=== PATIENT | female | born 2000 | race Caucasian/White ===

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

== ENCOUNTER 2018-11-12 16:13 | Emergency (ER) | payer SELFPAY ==
[2018-11-12 16:35] VITALS: BP 136/79
[2018-11-12] MEDS ORDERED: Tetan/Diph/Pertus SYR(Tdap)* 0.5 ML SYR(BOOSTRIX) use SYR IM ONE (17:02)
--- NOTE | 2018-11-12 17:10 | UC ---
Laceration HPI - HPI Summary HPI Summary: 18-year-old female presents for a laceration to her left pinky finger. States yesterday at approximately 5 PM she reached down to [facility] the chute of a lawnmower while it was still running causing laceration to her finger. States she cleaned and bandaged the wound and thought that it would be okay but today when she got home from work she remove the bandage and noticed some redness and swelling to the tip of the finger. Her tetanus status is unknown. Denies fever , chills, purulent drainage, decreased range of motion, numbness, or tingling. - History Of Current Complaint Chief Complaint: UCUpperExtremity Stated Complaint: INFECTED FINGER Time Seen by Provider: 11/12/18 16:33 Hx Obtained From: Patient Hx Last Menstrual Period: 10/28/18 Pain Intensity: 0 - Allergies/Home Medications Allergies/Adverse Reactions: Allergies Allergy/AdvReac Type Severity Reaction Status Date / Time No Known Allergies Allergy Verified 11/12/18 16:34 PMH/Surg Hx/FS Hx/Imm Hx Previously Healthy: Yes Psychological History: Depression - Surgical History Surgical History: None - Family History Known Family History: Positive: Hypertension - Social History Occupation: Employed Full-time Lives: With Family Alcohol Use: Rare Substance Use Type: None Substance Use Comment - Amount & Last Used: infrequently Smoking Status (MU): Heavy Every Day Tobacco Smoker Type: Cigarettes Length of Time of Smoking/Using Tobacco: "not long" "a few months" Have You Smoked in the Last Year: Yes - Immunization History Most Recent Influenza Vaccination: "never" per father Most Recent Tetanus Shot: unknown Most Recent Pneumonia Vaccination: "never" per father Review of Systems All Other Systems Reviewed And Are Negative: Yes Constitutional: Negative: Fever, Chills Skin: Positive: Other - See HPI Respiratory: Positive: Negative Cardiovascular: Positive: Negative Gastrointestinal: Positive: Negative Genitourinary: Positive: Negative Musculoskeletal: Positive: Negative Neurological: Positive: Negative Is Patient Immunocompromised?: No Physical Exam - Summary Physical Exam Summary: GENERAL APPEARANCE: Well developed, well nourished, alert and cooperative, and appears to be in no acute distress. CARDIAC: Normal S1 and S2. No S3, S4 or murmurs. Rhythm is regular. There is no peripheral edema, cyanosis or pallor. Extremities are warm and well perfused. Capillary refill is less than 2 seconds. Peripheral pulses intact. LUNGS: Clear to auscultation without rales, rhonchi, wheezing or diminished breath sounds. ABDOMEN: Positive bowel sounds. Soft, nondistended, nontender. No guarding or rebound. No masses or hepatosplenomegally. MUSKULOSKELETAL: ROM intact to all extremities. No joint erythema or tenderness. Normal muscular development. Normal gait. EXTREMITIES: 1 cm linear laceration to the palmar aspect of the tip of the left pinky finger. There is also a 0.5 cm laceration of the nail that extends to about midway. There is some mild erythema to the distal finger without edema or drainage. Bleeding controlled. Full ROM to finger. Circulation and sensation intact. SKIN: Skin normal color, texture and turgor. Triage Information Reviewed: Yes Vital Signs: Initial Vital Signs Temp 99.3 F 11/12/18 16:29 Pulse 91 11/12/18 16:29 Resp 16 11/12/18 16:29 BP 136/79 11/12/18 16:29 Pulse Ox 100 11/12/18 16:29 Vital Signs Reviewed: Yes Diagnostics - Radiology No standard instances Radiology Interpretation Completed By: ED Physician - No fracture or FB identified, Radiologist Summary of Radiographic Findings: Patient Name: BILLY COVARRUBIAS Medical Record# : [id number]. Ordering Physician: Noel Martínez NP Acct.#: [id number]. : 2000 Age: 18 Sex: F Location: [facility]. Exam Date: 11/12/18 1700 ADM Status: REG ER. Order Information: FINGER LEFT SMALL. Accession Number: [id number]. CPT: 70115. Indication: Left fifth digit injury. 3 views of the left fifth digit demonstrates no fracture or dislocation. No other bone or joint abnormality is noted. No fracture is noted. No radiopaque foreign body is identified. IMPRESSION: No fracture of the left fifth digit is noted. Laceration Course/Dx - Course/Dx Course Of Treatment: 18-year-old female presents for a laceration to her left pinky finger. States yesterday at approximately 5 PM she reached down [place] [facility] [place] chute of a lawnmower while it was still running causing laceration to her finger. States she cleaned and bandaged the wound and thought that it would be okay but today when she got home from work she remove the bandage and noticed some redness and swelling to the tip of the finger. Her tetanus status is unknown. Denies fever , chills, purulent drainage, decreased range of motion, numbness, or tingling. Afebrile. Vital signs stable. Exam revealed 1 cm linear laceration to the palmar aspect of the tip of the left pinky finger. There is also a 0.5 cm laceration of the nail that extends to about midway. There is some mild erythema to the distal finger without edema or drainage. Bleeding controlled. Full ROM to finger. Circulation and sensation intact. An x-ray was obtained of the finger and no fracture or foreign body was noted. The wound was irrigated with a copious amount of normal saline by the RN and the finger was soaked in a saline and chlorhexidine solution. I discussed the x-ray results with the patient and explained that since the wound was greater than 24 hours old that there was a higher risk for infection and closure of the wound was not recommended at this time. I dressed the wound using Xeroform and a nonstick gauze and secured it using tube gauze. The patient was offered to have her tetanus updated however she declined receiving it at this time. I did explain the risks of not updating her tetanus and she verbalized understanding. I'm going to place the patient on cephalexin 500 mg 3 times a day for 7 days and have her return in 3-4 days for a wound check and evaluation for possible delayed primary closure. Wound care, anticipatory guidance, and warning symptoms that would require immediate evaluation in the emergency room reviewed with the patient. She verbalizes understanding and agrees with plan of care. - Differential Dx - Laceration/Wound Differental Diagnoses: Foreign Body, Fracture, Laceration - Diagnosis Provider Diagnosis: Laceration of left little finger Discharge - Sign-Out/Discharge Documenting (check all that apply): Patient Departure All imaging exams completed and their final reports reviewed: Yes - Discharge Plan Condition: Stable Disposition: HOME Prescriptions: Cephalexin CAP* [Keflex 500 CAP*] 500 mg PO TID #21 cap Patient Education Materials: Laceration (ED) Forms: *Work Release Referrals: No Primary Care Phys,NOPCP [Primary Care Provider] - Additional Instructions: The x-ray performed in the clinic today showed no evidence of a fracture. Because your laceration was older than 24 hours it is not recommended to close the wound at this time. We will start she on an antibiotic called Keflex 500 mg 1 capsule 3 times a day for the next 7 days. Leave the dressing that was applied in the clinic in place for the next 24 hours. After 24 hours cleanse the wound with a mild soap and water at least twice a day. Apply a small amount of the Xeroform gauze that was provided to you over the wound and then cover with a bandage. You should change the bandage at least twice a day or any time it becomes wet or soiled. Take acetaminophen (Tylenol) or ibuprofen (Advil, Motrin) according to directions as needed for pain. Return here in 3-4 days for recheck of the wound and evaluation for possible delayed closure. Seek immediate medical attention in the emergency room if you develop a fever greater than 100.5 F, have severe pain that is not managed with a medication, have redness that spreads, a red streak going up your arm, increased swelling of the finger, pus draining from the wound, or any worsening of symptoms. - Billing Disposition and Condition Condition: STABLE Disposition: Home
== END 2018-11-12 18:10 | disposition home or self-care (01) ==
LOC: UCEAST 16:13
DX: S61.317A Laceration without foreign body of left little finger with damage to nail, initial encounter (principal); F17.210 Nicotine dependence, cigarettes, uncomplicated; W31.89XA Contact with other specified machinery, initial encounter; Y92.9 Unspecified place or not applicable
CPT/HCPCS: 73140; 90715; 99212; G0463

== ENCOUNTER 2019-01-13 15:08 | Emergency (ER) | payer SELFPAY ==
--- OUTSIDE RECORDS SUMMARY | 2019-01-13 15:13 | XMS REPORT | Continuity of Care Document ---
:2000 Author Organization [facility] Address [address], [place] [id number] Phone Care Team Providers Name Role Phone Ginette Soto NP Unavailable Unavailable Allergies, Adverse Reactions, Alerts Substance Reaction Status No Known Allergies Active Medications Medication Instructions Dosage Effective Dates (start Status Comments - stop) Aubra 0.1 mg-20 mcg 1 tab po daily - Active tablet Problems Condition Effective Dates (start - Clinical Status Comments stop) Encounter for surveillance of contraceptive pills Encounter for surveillance of contraceptive pills Human immunodeficiency virus [HIV] - counseling Encounter for surveillance of contraceptive pills Encounter for surveillance of contraceptive pills Encounter for surveillance of contraceptive pills Encounter for surveillance of contraceptive pills Encounter for surveillance of contraceptive pills Encntr screen for infections w sexl mode of transmiss Acute vaginitis Encntr screen for dis of the bld/bld-form org/immun mechn Encounter for surveillance of contraceptive pills Encntr screen for dis of the bld/bld-form org/immun mechn Encounter for test, result negative Encounter for surveillance of injectable contraceptive Encounter for initial prescription of contraceptive pills Encounter for surveillance of injectable contraceptive Encntr screen for infections w sexl mode of transmiss Candidiasis of vulva and vagina Encounter for initial prescription of injectable contracep Encounter for removal of intrauterine contraceptive device Encounter for routine checking of intrauterine contracep dev Encounter for initial prescription of contraceptive pills Acute vaginitis Encntr screen for infections w sexl mode of transmiss Encounter for test, result negative Encounter for insertion of intrauterine contraceptive device Encounter for test, result negative Encounter for oth general cnsl and advice on contraception Encounter for prescription of emergency contraception Encounter for initial prescription of other contraceptives Encounter for initial prescription of uterin contracep dev OCP, Start Family Planning Counseling Procedures Procedure Date Aubra EQ Contraceptive pills for bc Results Test Name Date and Time Measure Units Reference Range Abnormal Flag Status Comments No information Advance Directives Directive Yes / No Effective Date File Name No information Encounters Encounter Practice Location Reason(s) Diagnoses Date Provider Providers Description For Visit Copied on Encounter [facility] Encounter for Brittany Peng. [facility] surveillance of [address]- [address], [place], [place], [address], [place], [address], [place], [place], [id number], [place] tel:[phone] [facility] Brittany Peng. Referring [facility] 0- [address] Provider: [facility] [address], [place], [place], [address], [place], [address] [place], [address] [place], [address], [place], [place], [place], [address]. [id number], [place] tel:[phone] [facility] Encounter for Brittany Peng. [facility] surveillance of [address], [place], [place], [address], [place], [address], [place], [place], [id number], [place] tel:[phone] [facility] Human Brittany Peng. Referring [facility] immunodeficiency [address] Provider: [facility] virus [HIV] [address], [place], [place], [address], [place], [address] [place], [address] [place] surveillance of St, St, [place], contraceptive [place], [place], [place], [address]. [id number], [place] tel:[phone] [facility] Encounter for Brittany Peng. [facility] surveillance of [address], [place], [place], [address], [place], [address], [place], [place], [id number], [place] tel:[phone] [facility] Encounter for Feb-0 rBittany Peng. [facility] [place] surveillance of [address], [place], [place], [address], [place], [address], [place], [place], [id number], [place] tel:[phone] [facility] Encounter for Aug- [place]um [facility] of [place]. [address] Provider: [place] [facility] [address], [place], [place], [place], [address]. [place], [address] tel:[phone], St, [place], [address] [place], [place], [address]. [id number], tel:[phone] tel:[phone] [facility] Encounter for Dec-2 Brittany Peng. [facility] of [address] Provider: [facility] [address] [address], [place], [place], [address], [place], [address] [place], [address] screen for [place]. [address] infections w St, St, [place], sexl mode [place], [place], [address]. [id number], vaginitis [place] tel:[phone] [facility] Encntr screen Oct-0 Brittany Peng. [facility] for dis of the [address] Provider: [place] bld/bld-form [address], [place], [place], [address], [place], [address] [place], [address]sm [place], [address], [place], [place], [id number], [address] [place] ulting tel:[phone] Provider: [id number] NURSE [place] [facility]. [facility] Encounter for Sep-2 Brittany Peng. [facility] surveillance of [address], [place], [place], [address], [place], [address], [place], [place], [id number], [place] tel:[phone] [facility] Encntr screen Axel-0 Jake Referring [facility] [place] for dis of the 5- Annetta. [address] Provider: [facility] bld/bld-form [address], [place] org/immun [place], Francine [place], [address] mechnsmEncounter [address]. [address] for tel:[phone] [address], , [place], test, result [address] [place], [place], [place], [address]. [id number], r for tel:[phone] [place] surveillance of [id number] tel:[phone] injectable [phone] contraceptiveEnc ounter for initial prescription of contraceptive pills [facility] Encounter for Mar-0 Brittany Peng. Referring [facility] [place] surveillance of [address] Provider: [facility] injectable 7 , [place], [place], [address], Francine [place], [address] [place]. [address], [facility], [place], [place], [address]. [id number], tel:[phone] [place] [phone] tel:[phone] sulting [phone] Provider: NURSE [place] [facility]. [facility] Encntr screen May- Goodreau-Hem Referring [facility] [place] for infections w 2-201 abi Sueane. Provider: [facility] sexl mode of 6 [address] [place] transmissCandidi [facility], Francine Prater, [address] [place], [address]. [address] and tel:[phone] [address], [facility], vaginaEncounter [address] [place], [place], [place], [address]. [id number], prescription of tel:[phone] [place] injectable [id number] tel:[phone] contracepEncount [phone] er for removal of intrauterine contraceptive device [facility] Encounter for Nov-0 [facility] [place] routine checking 8- Arleen. [place] of intrauterine 6 [address] [place] contracep , [place], [place], [address] [place], [address], [address] initial [place]. [facility], prescription of tel:[phone] [place], contraceptive [id number], pillsAcute [place] vaginitisEncntr tel:[phone] screen for [phone] infections w sexl mode of transmiss [facility] Encounter for Estefania Referring [facility] [place] test, Jail[place]. [address] Provider: [facility] result [address], [place] negativeEncounte [place], Estefania R, [facility], 620 r for insertion [address]. [address] of intrauterine tel:[phone], St, [place], contraceptive [address] [place], [place], [address]. [id number], tel:[phone] tel:[phone] [facility] Encounter for [facility] [place] test, . [address] result [address], [place] negative[place]ounte [place], [place], [facility], [address] r for oth [address]. [address] general cnsl and tel:[phone] St, [place], [place] [address] [place], contraceptionEnc [id number], ounter for [place] prescription of tel:[phone] emergency [phone] contraceptionEnc ounter for initial prescription of other contraceptives [facility] Encounter for [facility] [place] initial . [address] [place] prescription of [address], [place] uterin contracep [place], [facility], [address] [address]. [address] tel:+7 St, [place], [address] [place], [id number], [place] tel:[phone] [facility] OCP, [facility] [place] Planning Emi. [address] [place] Counseling [address], [place], [facility], [address] [id number] tel:[phone] St, [place], [address] [place], [id number], [place] tel:[phone] Family History Family Member Diagnosis Age At Onset Mother No history of Myocardial infarction Father No history of Stroke 1st degree relative No hx of coronary heart disease (female <65, male <55) No family history of Blood clots, lung Father No history of Myocardial infarction No family history of Blood clots, legs Sister No history of Myocardial infarction Sister No history of Stroke 1st degree relative No hx of venous thromboembolism Mother No history of Stroke 1st degree relative No hx of cancer of breast, colon, endometrium or ovary Brother No history of Stroke Brother No history of Myocardial infarction Immunizations Vaccine Date Status Comments No information Payers Payer name Insurance type Covered republican ID Authorization(s) No information Social History Type Description Quantity Date Captured Comments Sex Female Vital Signs Date / Height Weight BMI Pulse Blood Temperature Respiratory Body Head BMI Pulse Inhaled Time: Rate Pressure Rate Surface Circumference percentile Ox Ox Area No information Chief Complaint And Reason For Visit No information Reason For Referral Reason For Referral No information Plan Of Treatment Date Type Action Status Goal Tobacco cessation counseling completed History Of Present Illness Encounter Date Complaint History Of Present Illness No information Functional Status Date Functional Assessment No information Medications Administered Medication Instructions Dosage Effective Dates (start - stop) Status Comments No information Instructions Date Instruction Additional Information No information Assessments Type Assessment Date No information Goals Health Concern Goal Type Priority Status Date No information Medical Equipment Description Device [place] Device Identifier Effective Dates (start - stop ) Status No information Mental Status Date Cognitive Assessment No information Health Concerns Observation Date No information Concern Status Date No information
--- OUTSIDE RECORDS SUMMARY | 2019-01-13 15:14 | XMS REPORT | Continuity of Care Document ---
:2000 Author Organization [facility] Address [address], [place] [id number] Phone Care Team Providers Name Role Phone [...] Start Family Planning Counseling Procedures Procedure Date No information Results Test Name Date and Time Measure Units Reference Range Abnormal Flag Status Comments No information Advance Directives Directive Yes / No Effective Date File Name No information Encounters Encounter Practice Location Reason(s) Diagnoses Date Provider Providers Description For Visit Copied on Encounter [facility] Encounter for Brittany Peng. [facility] surveillance of 0 [address] [place] [address] contrace[address], [place], [place], [address], [place], [address] [place]. [address] [place], [place], [place], [id number], [place] tel:[phone] [facility] Encounter for Brittany Peng. [facility] surveillance of [address] [place] [place] Southern contraceptive [address], [place], [place], [address], [place], 620 [place]. [address] [place], [place], [id number], [place] tel:[phone] [facility] Human Brittany Peng. Referring [facility] immunodeficiency [address] [place] [place] Provider: Southern virus [HIV] 9 St, [place], [place], [address], [place], 620 [place], [address] ter for [place]. [address] [place] surveillance of St, St, [place], contrace[place], [place], [place], [address]. [id number], [place] tel:[phone] [facility] Encounter for Brittany Peng. [facility] surveillance of [address] [place] Southern contraceptive [address], [place], [place], [address], [place], 620 [place]. [address] [place], [place], [place], [id number], [place] tel:[phone] [facility] Encounter for Feb- Brittany Peng. [facility] surveillance of [address] [place] [address] Southern contraceptive [address], [place], [place], [address], [place], 620 [place]. [address], [place], [place], [id number], [place] tel:[phone] [facility] Encounter for Kornblum Referring [facility] surveillance of [place]. [address] Provider: Southern contraceptive [address], [place], Kornblum [facility], 620 [address]. M, [address] [place] tel:+[address], , [place], [address] [place], [address]. [id number], tel:[phone] tel: [phone] [facility] Encounter for Dec-2 Brittany Peng. Referring [facility] [place] surveillance of [address] [place] Provider: Southern contraceptive 7 St, [place], [place], [address], [place], 620 [place], 620 screen for [place]. [address] [place] infections w St, , [place], sexl mode [place], [place], [place], [address]. [id number], vaginitis [place] tel:[phone] [facility] Encntr screen Oct-0 Brittany Peng. Referring [facility] [place] for dis of the [address] [place] Provider: [facility] bld/bld-form 7 St, [place], [place], [address], [place], 620 [place], 620 mechnsm [place]. [address] [place] [address] [place], St, [place], [place], [id number], [address].Cons [place] ulting tel:[phone] Provider: [phone] NURSE [place] [facility]. [facility] Encounter for Sep-2 Brittany Peng. [facility] [place] surveillance of [address] [place] Southern contraceptive [address], [place], [place], [address], [place], 620 [place]. [address], [place], [place], [id number], [place] tel:[phone] [facility] Encntr screen Axel-0 [place] Referring [facility] [place] for dis of the Annetta. [address] Provider: Southern bld/bld-form [address], Jailyn [place] org/immun [place], [place], Estefania R, [facility], 620 mechnsmEncounter [address]. [address] [place] for tel:[phone], St, [place], test, result [address] [place], [place], [place], [address]. [id number], r for tel:[phone] [place] surveillance of [id number] tel:[phone] injectable [id number] contraceptiveEnc ounter for initial prescription of contraceptive pills [facility] Encounter for Mar-0 Brittany Peng. Referring [facility] [place] surveillance of 2-201 [address] [place] Provider: Kay[place] injectable 7 , [place], [place], [address], Francine Prater, 620 [place]. [address] [place], [facility] [place], [place], [place], [address]. [id number], tel:[phone] [place] [phone] tel:[phone] sulting [phone] Provider: NURSE [place] [facility]. [facility] Encntr screen [place] Referring [facility] [place] for infections w 2-201 abi Sueane. Provider: [facility] sexl mode of 6 [address] [place] Jailyn [place] transmissCandidi [facility], [place], Francine Prater, 620 [place], [address]. [address] [place] and tel:[phone] [address], [facility], [place], vaginaEncounter [address] [place], [place], [place], [address]. [id number], prescription of tel:[phone] [place] injectable [id number] tel:[phone] contracepEncount [phone] er for removal of intrauterine contraceptive device [facility] Encounter for Nov-0 Guggino [facility] [place] routine checking 8-201 Arleen. Southern of intrauterine 6 [address] [place] [address] [place] contracep , [place], [facility], [address] [place], [address], [address] [place] initial [place]. [facility], [place], prescription of tel:[phone] [place], contraceptive [id number], pillsAcute [place] vaginitisEncntr tel:[phone] screen for [phone] infections w sexl mode of transmiss [facility] Encounter for Aug- Estefania [facility], 6-201 Jailyn. [address] Provider: [facility] result [address], Jailyn [place] negativeEncounte [place], [place], Francine Prater, 620 r for insertion [address]. [address] [place] of intrauterine tel:[phone], St, [place], contraceptive [address] [place], [place], [place], [address]. [id number], tel:[phone] [place] [phone] tel:[phone] [facility] Encounter for [facility] [place] test, Decia. [address] [place] result [address], [place] negativeEncounte [place], [place], [place], 620 r for oth [address]. [address] [place] general cnsl and tel:[phone] St, [place], [place] [address] [place], contraceptionEnc [id number], ounter for [place] prescription of tel:[phone] emergency [phone] contraceptionEnc ounter for initial prescription of other contraceptives [facility] Encounter for May- P[facility]te [facility] [place] initial Decia. [address] [facility] prescription of [address], [place] uterin contracep [place], [place], [facility], 620 dev [address]. [address] [place] tel:[phone] St, [place], [address] [place], [id number], [place] tel:[phone] [facility] OCP, StartFamily October- [facility] [place] Planning Emi. [address] [facility] Counseling [address], [place], [place], [facility], 620 [address]. [address] [place] tel:[phone] St, [place], [address] [place], [id number], [place] tel:[phone] Family History Family Member Diagnosis Age At [...] information Payers Payer name Insurance type Covered green party ID Authorization(s) No information Social History Type Description Quantity Date Captured Comments Alcohol Use Details Unknown Caffeine Use Details Unknown Tobacco Use Status Smoking Status Heavy tobacco smoker Sex Female Vital Signs Date / Height [...] Information No information Assessments Type Assessment Date assessment Encounter for surveillance of contraceptive pills Goals Health Concern Goal Type Priority Status Date No information Medical Equipment Description Device [place] Device Identifier Effective Dates (start - stop ) Status No information Mental Status Date Cognitive Assessment No information Health Concerns Observation Date No information Concern Status Date No information
[2019-01-13] MEDS ORDERED: Acetaminophen TAB* 325 MG PO ONE (15:50)
[2019-01-13] MEDS ORDERED: Ondansetron ODT TAB* 4 MG PO ONE (15:50)
--- NOTE | 2019-01-13 16:08 | UC ---
UC General HPI - HPI Summary HPI Summary: 18-year-old female presents with onset of fever, chills, headache, general malaise, body aches, nasal congestion, sore throat, and occasional cough. States today she developed nausea and had one episode of emesis. Reports feels a little lightheaded. Max temperature 102 F. Last took ibuprofen at 13:00. Denies visual disturbances, photophobia, neck pain or stiffness, chest pain, shortness of breath, abdominal pain, diarrhea, dysuria, frequency, urgency, or hematuria. - History of Current Complaint Chief Complaint: UCRespiratory Stated Complaint: ACHES, FEVER, COUGH, AND VOMITING Time Seen by Provider: 01/13/19 16:00 Hx Obtained From: Patient Hx Last Menstrual Period: 3 wks ago Pain Intensity: 8 - Allergy/Home Medications Allergies/Adverse Reactions: Allergies Allergy/AdvReac Type Severity Reaction Status Date / Time No Known Allergies Allergy Verified 01/13/19 15:17 Home Medications: Home Medications Ibuprofen TAB* [Motrin TAB* 800 MG] 800 mg PO BID 01/13/19 [History Confirmed ] PMH/Surg Hx/FS Hx/Imm Hx Previously Healthy: Yes Psychological History: Depression - Surgical History Surgical History: None - Family History Known Family History: Positive: Hypertension - Social History Occupation: Employed Full-time Lives: With Family Alcohol Use: Occasionally Substance Use Type: Marijuana Substance Use Comment - Amount & Last Used: infrequently Smoking Status (MU): Heavy Every Day Tobacco Smoker Type: Cigarettes Length of Time of Smoking/Using Tobacco: "not long" "a few months" Have You Smoked in the Last Year: Yes - Immunization History Most Recent Influenza Vaccination: "never" per father Most Recent Tetanus Shot: unknown Most Recent Pneumonia Vaccination: "never" per father Review of Systems All Other Systems Reviewed And Are Negative: Yes Constitutional: Positive: Fever, Chills, Fatigue Skin: Negative: Rash Eyes: Negative: Drainage, Eye Redness ENT: Positive: Sore Throat, Ear Ache, Nasal Discharge, Sinus Congestion. Negative: Sinus Pain/Tenderness Respiratory: Positive: Cough. Negative: Shortness Of Breath Cardiovascular: Negative: Palpitations, Chest Pain Gastrointestinal: Positive: Vomiting, Nausea. Negative: Abdominal Pain, Diarrhea Genitourinary: Negative: Dysuria, Hematuria, Frequency, Urgency, Vaginal/Penile Discharge, Abnormal Bleeding Musculoskeletal: Positive: Myalgia Neurological: Positive: Headache. Negative: Weakness, Paresthesia, Numbness Is Patient Immunocompromised?: No Physical Exam - Summary Physical Exam Summary: GENERAL APPEARANCE: Well developed, well nourished, alert and cooperative, and appears to be in no acute distress. EYES: Conjunctiva clear. No drainage. EARS: External auditory canals and tympanic membranes clear, hearing grossly intact. NOSE: Mild-moderate nasal congestion. No nasal discharge. THROAT: Mild pharyngeal erythema. No tonsilar inflammation, swelling, exudate, or lesions. Uvula midline. NECK: Neck supple, non-tender without lymphadenopathy. CARDIAC: Normal S1 and S2. No S3, S4 or murmurs. Rhythm is regular. There is no peripheral edema, cyanosis or pallor. Extremities are warm and well perfused. Capillary refill is less than 2 seconds. Peripheral pulses intact. LUNGS: Clear to auscultation without rales, rhonchi, wheezing or diminished breath sounds. ABDOMEN: Positive bowel sounds. Soft, nondistended, nontender. No guarding or rebound. No masses or hepatosplenomegally. No CVA tenderness. MUSKULOSKELETAL: ROM intact to all extremities. No joint erythema or tenderness. Normal muscular development. Normal gait. SKIN: Skin normal color, texture and turgor with no lesions or eruptions. Triage Information Reviewed: Yes Vital Signs: Initial Vital Signs Temp 100.7 F 01/13/19 15:14 Pulse 105 01/13/19 15:14 Resp 18 01/13/19 15:14 BP 110/69 01/13/19 15:14 Pulse Ox 99 01/13/19 15:14 Vital Signs Reviewed: Yes Re-Evaluation - Re-Evaluation First Eval Re-Evaluation Time: 17:41 Change: Improved Comment: Patient states she is feeling better. Temperature is normalizing and VSS. Course/Dx - Course Course Of Treatment: 18-year-old female presents with onset of fever, chills, headache, general malaise, body aches, nasal congestion, sore throat, and occasional cough. States today she developed nausea and had one episode of emesis. Reports feels a little lightheaded. Max temperature 102 F. Last took ibuprofen at 13:00. Denies visual disturbances, photophobia, neck pain or stiffness, chest pain, shortness of breath, abdominal pain, diarrhea, dysuria, frequency, urgency, or hematuria. Patient had a temp of 101.8 F. She was mildly tachycardic otherwise vital signs are stable. She had rxdr-lo-msxkrtqf nasal congestion, mild pharyngeal erythema without tonsillar swelling or exudate, no cervical lymphadenopathy, clear bilateral breath sounds, nontender abdomen, and otherwise unremarkable exam. Rapid strep test was negative. Rapid flu test was negative. Turtd-wj-aqpq urinalysis showed 1+ leukocyte esterase and 4+ ketones. She received acetaminophen 975 mg for her fever, ondansetron 8 mg PO for the nausea, and received 1 L of normal saline IV. Over the course of her stay the patient's temperature began to normalize, her heart rate normalized, and symptoms improved. She had no episodes of vomiting during the course of her stay. With the absence of urinary symptoms that do not feel that the positive leukocyte esterase is suggestive of a UTI. A urine culture is pending and will treat as needed. I suspect that her symptoms are from a viral syndrome and are recommending continued symptomatic care. She is to follow-up with her primary care provider in 3 days if symptoms are not improving. Anticipatory guidance and warning symptoms were reviewed with the patient. Verbalizes understanding and agrees with plan of care. - Differential Dx - Multi-Symptom Differential Diagnoses: Urinary Tract Infection, Other - URI, strep throat - Diagnoses Provider Diagnosis: Viral syndrome Discharge - Sign-Out/Discharge Documenting (check all that apply): Patient Departure All imaging exams completed and their final reports reviewed: No Studies - Discharge Plan Condition: Stable Disposition: HOME Patient Education Materials: Viral Syndrome (ED) Forms: *Work Release Referrals: No Primary Care Phys,NOPCP [Primary Care Provider] - Additional Instructions: The rapid strep test and rapid flu tests performed in the clinic today were negative. Your history and exam are consistent with a viral infection. Viral infections do not respond to antibiotics and are limited to the treatment of symptoms. Viral infections typically run their course in 7-10 days. Drink plenty of fluids to avoid dehydration especially if you are running any fever. Take over the counter acetaminophen (Tylenol) or ibuprofen (Advil, Motrin) according to directions as needed for pain or fever. Use salt water gargles several times a day if you have a sore throat. You may also use Chloraseptic spray or Cepacol lonzenges according to directions which contain a numbing medication and can provide some temporary relief from your sore throat. Follow up with your primary care provider in 3-5 days if symptoms persist. Seek immediate medical attention in the emergency room if you have fever greater than 100.5 F despite taking acetaminophen or ibuprofen, have chest pain , difficulty breathing, are unable to swallow, develop severe abdominal pain, persistent vomiting, or have any worsening of symptoms. - Billing Disposition and Condition Condition: STABLE Disposition: Home
[2019-01-13] MEDS ORDERED: NS 0.9% 1000 ML** 1,000 ML IV ONE (16:35)
[2019-01-13 16:45] LABS: Influenza A Molecular NEGATIVE (Negative); Influenza B Molecular NEGATIVE (Negative)
[2019-01-13 17:52] VITALS: BP 109/60
== END 2019-01-13 18:10 | disposition home or self-care (01) ==
LOC: UCEAST 15:08
DX: B34.9 Viral infection, unspecified (principal); F32.9 Major depressive disorder, single episode, unspecified; F17.210 Nicotine dependence, cigarettes, uncomplicated
CPT/HCPCS: 81002; 87086; 87651; 96360; 99212; A9270-GY; G0463

== ENCOUNTER 2019-05-08 13:05 | Emergency (ER) | payer SELFPAY ==
--- OUTSIDE RECORDS SUMMARY | 2019-05-08 13:19 | XMS REPORT | Continuity of Care Document ---
:2000 Author Organization [facility] Address [address] [place] [address] Phone Care Team Providers Name Role Phone [...] screen for dis of the bld/bld-form org/immun mechnsm Encounter for surveillance of contraceptive pills Encntr screen for dis of the bld/bld-form org/immun mechnsm Encounter for test, result negative Encounter for [...] Encounter [facility] Encounter for Brittany Peng. [facility] surveillance of 0- [address] [place] [address], [place], [place], [address], [place], [address], [place], [place], [id number], [place] tel:[phone] [facility] Encounter for Brittany Peng. [facility] surveillance of 0- [address] [place] [address], [place], [place], [address], [place], [address] [place]. [address] [place] , [place], [place], [id number], [place] tel:[phone] [facility] Encounter for Brittany Peng. [facility] surveillance of [address] [address], [place], [place], [address], [facility], [address], [place], [place], [id number], [place] tel:[phone] [facility] Human Brittany Peng. Referring [facility] immunodeficiency [address] [place] Provider: Southern virus [HIV] 9 St, [place], [place], [address], [place], 620 [place], [address] ter for [place]. [address] [place] surveillance of St, St, [place], contraceptive [place], [place], [place], [address]. [id number], [place] tel:[phone] [facility] Encounter for Brittany Peng. [facility] surveillance of [address] [place] [address] contrace[address], [place], [place], [address], [place], [address], [place], [place], [id number], [place] tel:[phone] [facility] Encounter for Feb-0 Brittany Peng. [facility] [place] surveillance of [address] [place] [address] contrace[address], [place], [place], [address], [place], [address], [place], [place], [id number], [place] tel:[phone] [facility] Encounter for Jan- Kornblum Referring [facility] [place] surveillance of [place]. [address] W Provider: [place] contraceptive [address], [place], [place], [place], [address]. M, [address] [place] tel:[phone], St, [place], [address] [place], [place], [address]. [id number], tel:[phone] [place] [phone] tel:[phone] [facility] Encounter for Dec-2 Brittany Peng. Referring [facility] [place] surveillance of [address] [place] Provider: Southern contraceptive 7 St, [place], [place], [address], [place], 620 [place], 620 screen for [place]. [place] infections w St, St, [place], sexl mode [place], [place], [place], [address]. [id number], vaginitis [place] tel:[phone] [facility] Encntr screen Mar-0 Brittany Peng. Referring [facility] [place] for dis of the [address] [place] Provider: [facility] bld/bld-form 7 St, [place], G[place], [address], [place], 620 [place], 620 mechnsm [place]. [address] [place] [address], St, [place], [place], [id number], [address].Cons [place] ulting tel:[phone] Provider: [id number] NURSE [place] [facility]. [facility] Encounter for Sep-2 Brittany Peng. [facility] [place] surveillance of [address] [place] [address], [place], [place], [address], [place], [address], [place], [place], [id number], [place] tel:[phone] [facility] Encntr screen Axel-0 [place] Referring [facility] [place] for dis of the Annetta. [address] Provider: [place] bld/bld-form [address], Jailyn Finger org/immun [place], [place], Francine Prater, 620 mechnsmEncounter [address]. [address] [place] for tel:[phone] [address], , [place], test, result [address] [place], [place], [place], [address]. [id number], r for tel:[phone] [place] surveillance of [id number] tel:[phone] injectable [id number] contraceptiveEnc ounter for initial prescription of contraceptive pills [facility] Encounter for Mar-0 Brittany Peng. Referring [facility] [place] surveillance of 2 [address] [place] Provider: [facility] injectable 7 , [place], [place], [address], Francine Prater, 620 [place]. [address], , [place], [place], [place], [address]. [id number], tel:[phone] [place] [phone] tel:[phone] sulting [phone] Provider: NURSE [place] [facility]. [facility] Encntr screen [place] Referring [facility] [place] for infections w 2 [place] Provider: [facility] sexl mode of 6 Sueane. 620 Jailyn [place] transmissCandidi [address] [place] , Francine Prater, 620 asis of vulva [place], [place], [address] [place] [address], [facility], vaginaEncounter tel:[phone] [place], [place], [place] [address] [place], [address]. [id number], prescription of tel:[phone] [place] injectable [id number] tel:[phone] contracepEncount [phone] er for removal of intrauterine contraceptive device [facility] Encounter for Nov-0 Guggino [facility] [place] routine checking 8 Arleen. [place] of intrauterine 6 [address], [place], [place], [address] [place], [address], [place] initial [place]. , [place], prescription of tel:[phone] [place], contraceptive [id number], pillsAcute [place] vaginitisEncntr tel:[phone] screen for [phone] infections w sexl mode of transmiss [facility] Encounter for Aug- Estefania Referring [facility] [place] test, 6- Jailyn. [address] W Provider: [facility] result [address], Jail[place] negativeEncounte [place], [place], Estefania R, [facility], 620 r for insertion [address]. [address] [place] of intrauterine tel:[phone], St, [place], contraceptive [address] [place], [place], [place], [address]. [id number], tel:[phone] [place] [phone] tel:[phone] [facility] Encounter for Parete [facility] [place] test, Decia. [address] [place] result [address], [place] negativeEncounte [place], [place], [facility], 620 r for oth [address]. [address] [place] general cnsl and tel:[phone] St, [place], [place] [address] [place], contraceptionEnc [id number], ounter for [place] prescription of tel:[phone] emergency [phone] contraceptionEnc ounter for initial prescription of other contraceptives [facility] Encounter for Parete [facility] [place] initial Decia. [address] [place] prescription of [address], Finger uterin contracep [place], [place], [facility], 620 dev [address]. [address] [place] tel:+[phone] St, [place], [address] [place], [id number], [place] tel:[phone] [facility] OCP, StartFamily October- [facility] [place] Planning Emi. [address] [place] Counseling [address], [place], [place], [facility], 620 [address]. [address] [place] tel:+[phone] St, [place], [address] [place], [id number], [place] tel:[phone] Family History Family Member Diagnosis Age At [...] information Payers Payer name Insurance type Covered alliance party ID Authorization(s) No information Social History [...] Date No information Medical Equipment Description Device [place] Device Identifier Effective Dates (start - stop ) Status No information Mental Status Date Cognitive Assessment No information Health Concerns Observation Date No information Concern Status Date No information
--- OUTSIDE RECORDS SUMMARY | 2019-05-08 13:19 | XMS REPORT | Continuity of Care Document ---
:2000 Author Organization [facility] Address [address] [place] [address] Phone Care Team Providers Name Role Phone [...] Encounter [facility] Encounter for Brittany Peng. [facility] surveillance of 0-201 [address] [place] contraceptive 9 [facility], [place], [address], [place], [address] [place] [employer], [id number], [place] tel:[phone] [facility] Brittany Peng. Referring [facility] 0- [address] Provider: [facility] 9 [facility], [place], [address], [place], 620 [place], 620 [place]. [address] [address] [address], [facility], [place], [address]. [id number], [place] tel:[phone] [facility] Encounter for Brittany Peng. [facility] surveillance of 0-201 [address] [place] contraceptive 9 [facility], [place], [address], [place], [address], [place], [place], [id number], [place] tel:[phone] [facility] Encounter for Brittany Peng. [facility] surveillance of [address] [place] contraceptive 9 [facility], [place], [address], [place], [address] [place], [place], [place], [id number], [place] tel:[phone] [facility] Human Brittany Peng. Referring [facility] immunodeficiency 8 [address] Provider: [facility] virus [HIV] 9 , [place], [place], [address], [place], 620 [place], [address] for [place]. [address] [place] [address] [place] surveillance of St, , [place], contraceptive [place], [place], [place], [address]. [id number], [place] tel:[phone] [facility] Encounter for Nov-2 Brittany Peng. [facility] [place] surveillance of [address] contraceptive [address], [place], [place], [address], [place], [address] [place], [place], [place], [id number], [place] tel:[phone] [facility] Encounter for Sep-0 Brittany Peng. [facility] [place] surveillance of [address] contraceptive [address], [place], [place], [address], [place], [address] [place], [place], [place], [id number], [place] tel:[phone] [facility] Encounter for Jan- [place] [facility] surveillance of Charlette. [address] Provider: [place] contraceptive [address], [place], [place], [place], [address]. M, [address] tel:[phone], [facility], [address] [place], [place], [address]. [id number], tel:[phone] tel:[phone] [facility] Encounter for Dec-2 Brittany Peng. Referring [facility] surveillance of [address] Provider: [facility] contraceptive [address], [place], [place], [address], [place], 620 [place], 620 screen for [place]. [address] [place] [address] [place] infections w St, St, [place], sexl mode [place], [place], [address]. [id number], vaginitis [place] tel:[phone] [facility] Encntr screen Oct-0 Brittany Peng. Referring [facility] [place] for dis of the [address] Provider: Southern bld/bld-form 7 St, [place], [place], [address], [place], 620 [place], 620 mechnsm [place]. [address], St, [place], [place], [id number], [address].Cons [place] ulting tel:[phone] Provider: [id number] NURSE [place] [facility]. [facility] Encounter for Sep-2 Brittany Peng. [facility] [place] surveillance of [address] contraceptive [address], [place], [place], [address], [facility], [address], [place], [place], [id number], [place] tel:[phone] [facility] Encntr screen Axel-0 Jake Referring [facility] for dis of the Annetta. [address] Provider: [facility] bld/bld-form [address], Jailyn [place] org/immun [place], [place], Estefania Hwang [facility], 620 mechnsmEncounter [address]. [address] for tel:[phone] [address], St, [place], test, result [phone] [place], [place], [place], [address]. [id number], r for tel:[phone] [place] surveillance of [id number] tel:[phone] injectable [phone] contraceptiveEnc ounter for initial prescription of contraceptive pills [facility] Encounter for Mar-[address]. [address] [facility] surveillance of [address] Provider: [facility] injectable 7 St, [place], [place], [address], Estefania Hwang [facility], 620 [place]. [address], St, [place], [place], [address]. [id number], tel:[phone] [place] [phone] tel:[phone] sulting [phone] Provider: NURSE [place] [facility]. [facility] Encntr screen Dec-2 Hemmer Referring [facility] for infections w - [place] Provider: [facility] sexl mode of 6 Sueane. [address] Jail[address] [place] trans[address]Candidi [address], Estefania Hwang [facility], 620 asis of vulva [place], [place], [address], St, [place], vaginaEncounter tel:[phone] [place], [place] [address] [place], [address]. [id number], prescription of tel:[phone] [place] injectable [id number] tel:[phone] contracepEncount [phone] er for removal of intrauterine contraceptive device [facility] Encounter for Nov-0 [facility]ugg[facility] [place] routine checking 8 Arleen. Southern of intrauterine 6 [address], [place], [facility], [address] [place], [address], [address] [place] initial [place]. St, [place], prescription of tel:[phone] [place], contraceptive [id number], pillsAcute [place] vaginitisEncntr tel:[phone] screen for [phone] infections w sexl mode of transmiss [facility] Encounter for Estefania Referring [facility] [place] test, Jailyn. [address] Provider: Southern result [address], Jail[place] negativeEncounte [place], [place], Estefania R, [facility], 620 r for insertion [address]. [address] [place] [place] of intrauterine tel:[phone] [address], St, [place], contraceptive [address] [place], [place], [place], [address]. [id number], tel:[phone] [place] [phone] tel:[phone] [facility] Encounter for Parete [facility] [place] test, Decia. [address] [place] result [address], [place] negative[place]ounte [place], [place], [facility], 620 r for oth [address]. [address] [place] general cnsl and tel:[phone] St, [place], [place] [address] [place], contraceptionEnc [id number], ounter for [place] prescription of tel:[phone] emergency [phone] contraceptionEnc ounter for initial prescription of other contraceptives [facility] Encounter for Parete [facility] [place] initial Laina. [address] [place] prescription of [address], [place] uterin contracep [place], [place], [facility], [address] dev [address]. [address] tel:[phone] St, [place], [address] [place], [id number], [place] tel:[phone] [facility] OCP, [facility] [place] Planning Emi. [address] [place] Counseling [address], [place], [place], [facility], [address] [address] [place] tel:[phone] St, [place], [address] [place], [id number], [place] tel:[phone] Family History Family Member Diagnosis Age At [...] information Payers Payer name Insurance type Covered libertarian ID Authorization(s) No information Social History Type [...] Date No information Medical Equipment Description Device Coy Device Identifier Effective Dates (start - stop ) Status No information Mental Status Date Cognitive Assessment No information Health Concerns Observation Date No information Concern Status Date No information
[2019-05-08 13:32] VITALS: BP 117/74
--- NOTE | 2019-05-08 13:39 | UC ---
Upper Extremity HPI - HPI Summary HPI Summary: slipped at fell at work yesterday foosh right arm--pain in right wrist and elbow -- - History of Current Complaint Chief Complaint: UCUpperExtremity Stated Complaint: ARM INJURY Time Seen by Provider: 05/08/19 13:25 Hx Obtained From: Patient Hx Last Menstrual Period: a week ago ?: No Onset/Duration: Sudden Onset, Lasting Days - 1, Still Present Pain Intensity: 9 Pain Scale Used: 0-10 Numeric Location Of Pain: Is Discrete @ - right wrist and elbow Character: Aching Aggravating Factor(s): Movement Alleviating Factor(s): Nothing Associated Signs And Symptoms: Positive: Weakness Related History: Dominant Hand Right - Allergies/Home Medications Allergies/Adverse Reactions: Allergies Allergy/AdvReac Type Severity Reaction Status Date / Time No Known Allergies Allergy Verified 05/08/19 13:32 Home Medications: Home Medications NK [No Home Medications Reported] 05/08/19 [History Confirmed 05/08/19] PMH/Surg Hx/FS Hx/Imm Hx Previously Healthy: Yes - Surgical History Surgical History: None - Family History Known Family History: Positive: Hypertension - Social History Occupation: Employed Full-time Lives: With Family Alcohol Use: Occasionally Substance Use Type: Marijuana Substance Use Comment - Amount & Last Used: infrequently Smoking Status (MU): Heavy Every Day Tobacco Smoker Type: Cigarettes Amount Used/How Often: 1ppd Length of Time of Smoking/Using Tobacco: "not long" "a few months" Have You Smoked in the Last Year: Yes Household Exposure Type: Cigarettes - Immunization History Most Recent Influenza Vaccination: "never" per father Most Recent Tetanus Shot: unknown Most Recent Pneumonia Vaccination: "never" per father Review of Systems All Other Systems Reviewed And Are Negative: Yes Constitutional: Positive: Negative Skin: Positive: Negative Eyes: Positive: Negative ENT: Positive: Negative Respiratory: Positive: Negative Cardiovascular: Positive: Negative Gastrointestinal: Positive: Negative Genitourinary: Positive: Negative Motor: Positive: Negative Neurovascular: Positive: Negative Musculoskeletal: Positive: Arthralgia - right wrist and elbow Neurological: Positive: Negative Psychological: Positive: Negative Is Patient Immunocompromised?: No Physical Exam Triage Information Reviewed: Yes Appearance: Well-Appearing, No Pain Distress, Well-Nourished Vital Signs: Initial Vital Signs Temp 99.5 F 05/08/19 13:28 Pulse 95 05/08/19 13:28 Resp 18 05/08/19 13:28 BP 117/74 05/08/19 13:28 Pulse Ox 100 05/08/19 13:28 Vital Signs Reviewed: Yes Eye Exam: Normal Eyes: Positive: Conjunctiva Clear ENT Exam: Normal ENT: Positive: Normal ENT inspection, Hearing grossly normal. Negative: Trismus , Muffled voice, Hoarse voice Dental Exam: Normal Neck exam: Normal Neck: Positive: Supple, Nontender, No Lymphadenopathy Respiratory Exam: Normal Respiratory: Positive: Chest non-tender, No respiratory distress, No accessory muscle use Cardiovascular Exam: Normal Cardiovascular: Positive: RRR, Pulses Normal, Brisk Capillary Refill Musculoskeletal Exam: Normal Musculoskeletal: Positive: Strength Intact, ROM Intact, No Edema Neurological Exam: Normal Neurological: Positive: Alert, Muscle Tone Normal Psychological Exam: Normal Skin Exam: Normal Diagnostics - Radiology No standard instances Radiology Interpretation Completed By: Radiologist - +fat pad possible occult fx right elbow Upper Extremity Course/Dx - Course Course Of Treatment: sling, rest, ice elevation follow with orthopedic MD, off work untill cleared by ortho - Differential Dx/Diagnosis Provider Diagnosis: Occult closed fracture of right elbow Discharge ED - Sign-Out/Discharge Documenting (check all that apply): Patient Departure All imaging exams completed and their final reports reviewed: Yes - Discharge Plan Condition: Stable Disposition: HOME Patient Education Materials: Ibuprofen (By mouth), Elbow Fracture (ED), R.I.C.E. Treatment (ED) Forms: *Work Release Referrals: Shashank Kelsey MD [Medical Doctor] - 3 Days - Billing Disposition and Condition Condition: STABLE Disposition: Home - Attestation Statements Provider Attestation: I was available for consult. This patient was seen by the [facility]. The patient was not presented to , seen by or examined by wi -Mendez Martinez MD
== END 2019-05-08 15:24 | disposition home or self-care (01) ==
LOC: UCEAST 13:05
DX: S42.401A Unspecified fracture of lower end of right humerus, initial encounter for closed fracture (principal); F17.210 Nicotine dependence, cigarettes, uncomplicated; W01.0XXA Fall on same level from slipping, tripping and stumbling without subsequent striking against object, initial encounter; Y92.9 Unspecified place or not applicable; Y99.0 Civilian activity done for income or pay
CPT/HCPCS: 99212; G0463

== ENCOUNTER 2023-10-16 20:29 | Inpatient (IN) ==
[2023-10-16] MEDS ORDERED: Prochlorperazine 5 mg/ml 2 ml VIAL (10 mg) IV PRN (20:52)
[2023-10-16] MEDS ORDERED: Lidocaine 1% VIAL 10 MG/ML 30 ML VIAL INJ PRN (20:52)
[2023-10-16] MEDS ORDERED: Nalbuphine 10 MG/ML 1 ML VIAL IV PRN (20:52)
[2023-10-16] MEDS: Dinoprostone 10 MG VAG.SUPP VAGINAL ONE (22:18)
[2023-10-16 22:58] LABS: Urine Benzodiazepine Screen None Detected (None Detect); Urine Cannabinoids Screen None Detected (None Detect); Urine Opiates Screen None Detected (None Detect)
[2023-10-17 12:13] LABS: ABS Basophils 0.1 10^3/uL (0.0-0.1); ABS Eosinophils 0.1 10^3/uL (0.0-0.5); ABS Lymphocytes 1.9 10^3/uL (1.0-4.8); ABS Monocytes 1.1 10^3/uL (0.0-0.9); ABS Neutrophils 9.1 10^3/uL (1.5-7.6); ABS Nucleated RBC 0.02 10^3/ul; Eosinophil % 0.4 %; Hematocrit 28.4 % (35-45); Hemoglobin 9.5 g/dL (11.5-14.3); Lymphocyte % 15.3 %; Mean Corpuscular Hemoglobin 26.9 pg (27-33); Mean Corpuscular Hgb Conc 33.3 g/dL (31-36); Mean Corpuscular Volume 80.8 fL (80-97); Mean Platelet Volume 9.4 fL (7.5-11.2); Nucleated Red Blood Cells % 0.2 %/100WBC (0.0-0.8); Platelet Count 181 10^3/uL (150-450); Red Blood Count 3.51 10^6/uL (3.63-4.92); Red Cell Distribution Width 15.7 % (12-17); White Blood Count 12.2 10^3/uL (3.8-11.8)
[2023-10-17] MEDS: Lactated Ringers 1000 ml BAG 1,000 ML IV ONE (12:56)
[2023-10-17] MEDS: Oxytocin in LR 20,000 MILLI.UNIT/1,000 ML BAG IV SCH (12:57)
[2023-10-17] MEDS: Buffered Lidocaine 1% SYRIN 1 ml INTRADERM ONE (19:30)
[2023-10-18] MEDS: miSOPROStol 100 mcg TAB VAGINAL ONE (01:06)
[2023-10-18] MEDS: miSOPROStol 100 mcg TAB PO ONE (05:26)
[2023-10-18] MEDS: OBEPIDURAL (200 ML) 200 ML EPIDURAL SCH (14:00)
[2023-10-18] MEDS: Ondansetron 4 mg VIAL 2 MG/ML 2 ml VIAL IV PRN (14:02)
[2023-10-18] MEDS ORDERED: Phenylephrine 40 mcg/mL 10mL (400mcg) SYRINGE IV PUSH PRN ×2 (16:30)
[2023-10-18] MEDS ORDERED: Sodium Citrate/Citric Acid LIQ 15 ML UDC PO PRN (16:30)
[2023-10-18 18:15] LABS: Urine Appearance Clear; Urine Bilirubin Negative (Negative); Urine Blood Trace (Negative); Urine Color Light-Yellow; Urine Glucose Negative (Negative); Urine Ketones Negative (Negative); Urine Nitrite Negative (Negative); Urine Protein Negative (Negative); Urine Specific Gravity 1.011 (1.002-1.030); Urine Urobilinogen Negative (Negative); Urine pH 6.5 (5.0-8.0)
[2023-10-19] MEDS ORDERED: Glycerin ADULT 2.4 gm SUPP PR PRN (00:40)
[2023-10-19] MEDS: Oxytocin in LR 20,000 MILLI.UNIT/1,000 ML BAG IV SCH (00:50)
[2023-10-19] MEDS: Methylergonovine 0.2 mg AMPULE 1 ml AMP IM ONE (00:52)
[2023-10-19] MEDS ORDERED: Lactated Ringers 1000 ml BAG 1,000 ML IV SCH (01:00)
[2023-10-19] MEDS: Methylergonovine 0.2 mg AMPULE 1 ml AMP ONE (01:32)
[2023-10-19] MEDS: Oxytocin in LR 20,000 MILLI.UNIT/1,000 ML BAG IV ONE (01:33)
[2023-10-19] MEDS: Lactated Ringers 1000 ml BAG 1,000 ML IV ONE (01:33)
[2023-10-19] MEDS: Lidocaine 1.5% EPI 1:200,000 30 ML SDV ONE (01:33)
[2023-10-19] MEDS: OBEPIDURAL (200 ML) 200 ML EPIDURAL ONE (07:08)
[2023-10-19] MEDS: Lactated Ringers 1000 ml BAG 1,000 ML IV SCH (07:08)
[2023-10-19 07:55] LABS: Hemoglobin 7.2 g/dL (11.5-14.3); Mean Corpuscular Hemoglobin 26.5 pg (27-33); Mean Corpuscular Hgb Conc 32.8 g/dL (31-36); Mean Platelet Volume 9.4 fL (7.5-11.2); Platelet Count 167 10^3/uL (150-450); Red Blood Count 2.71 10^6/uL (3.63-4.92); Red Cell Distribution Width 15.7 % (12-17); White Blood Count 23.4 10^3/uL (3.8-11.8)
[2023-10-19 08:11] LABS: ABS Lymphocytes 1.7 10^3/uL (1.0-4.8); ABS Neutrophils 19.7 10^3/uL (1.5-7.6); ABS Nucleated RBC 0.01 10^3/ul; Lymphocyte % 7.4 %
[2023-10-19] MEDS: Witch Hazel PAD JAR TOPICAL PRN (08:51)
[2023-10-19] MEDS: Dibucaine 1% OINT 28.35 GM TUBE PR PRN (08:51)
[2023-10-19] MEDS: Varicella Virus Vaccine Live 0.5 ML VIAL SUBCUT ONE (14:52)
[2023-10-20 07:33] LABS: ABS Basophils 0.1 10^3/uL (0.0-0.1); ABS Eosinophils 0.1 10^3/uL (0.0-0.5); ABS Lymphocytes 3.9 10^3/uL (1.0-4.8); ABS Monocytes 1.3 10^3/uL (0.0-0.9); ABS Neutrophils 10.4 10^3/uL (1.5-7.6); ABS Nucleated RBC 0.02 10^3/ul; Eosinophil % 0.6 %; Hematocrit 15.8 % (35-45); Lymphocyte % 24.7 %; Mean Corpuscular Hemoglobin 26.3 pg (27-33); Mean Corpuscular Hgb Conc 32.4 g/dL (31-36); Mean Platelet Volume 9.4 fL (7.5-11.2); Nucleated Red Blood Cells % 0.1 %/100WBC (0.0-0.8); Platelet Count 153 10^3/uL (150-450); Red Blood Count 1.95 10^6/uL (3.63-4.92); Red Cell Distribution Width 17.6 % (12-17); White Blood Count 15.8 10^3/uL (3.8-11.8)
[2023-10-20 07:34] LABS: Hemoglobin 6.4 g/dL (11.5-14.3)
[2023-10-20] MEDS: Lactated Ringers 1000 ml BAG 1,000 ML IV SCH (19:27)
[2023-10-21 08:00] VITALS: BP 109/65
[2023-10-21 08:24] LABS: Hematocrit 22.3 % (35-45); Hemoglobin 7.4 g/dL (11.5-14.3); Mean Corpuscular Hgb Conc 33.2 g/dL (31-36); Mean Corpuscular Volume 81.2 fL (80-97); Mean Platelet Volume 8.6 fL (7.5-11.2); Platelet Count 145 10^3/uL (150-450); Red Blood Count 2.75 10^6/uL (3.63-4.92); Red Cell Distribution Width 17.6 % (12-17); White Blood Count 11.1 10^3/uL (3.8-11.8)
[2023-10-21] MEDS: Iron Sucrose 200 MG in NS 0.9% 100 ml BAG 100 ML IVPB ONE (09:45)
[2023-10-21 11:01] LABS: ABS Eosinophils 0.1 10^3/uL (0.0-0.5); ABS Lymphocytes 2.3 10^3/uL (1.0-4.8); ABS Monocytes 0.8 10^3/uL (0.0-0.9); ABS Neutrophils 7.9 10^3/uL (1.5-7.6); ABS Nucleated RBC 0.02 10^3/ul; Lymphocyte % 20.6 %; Nucleated Red Blood Cells % 0.1 %/100WBC (0.0-0.8)
== END 2023-10-21 12:20 | disposition home or self-care (01) | DRG 560 ==
LOC: MCHOBOUT 20:29 → MCHOB 21:03
PROVIDERS: ADMIT Advanced Practice Midwife; ATTEND Midwife